=== PATIENT | female | born 1945 | race Caucasian/White ===

== ENCOUNTER 2018-10-01 06:07 | Day surgery (SDC) | payer MEDICARE, BC ==
[~2018-10-01 06:07] MED LIST: Dextrose 5%-0.45% NaCl 1,000 ML IV SCH; Sodium Chloride 0.9% 10 ML Syringe FLUSH PRN
[2018-10-01] MEDS ORDERED: Midazolam 1 MG/ML 2 ML SDV IV ONE ×7 (06:08→07:22)
[2018-10-01] MEDS ORDERED: fentaNYL 100 MCG/2 ML SDV IV ONE ×3 (06:08→07:13)
[2018-10-01] MEDS ORDERED: Midazolam 1 MG/ML 2 ML SDV ONE (06:14)
[2018-10-01] MEDS ORDERED: fentaNYL 100 MCG/2 ML SDV ONE (06:15)
[2018-10-01 10:02] VITALS: BP 121/62; PULSE 79
--- NOTE | 2018-10-01 11:38 | OR ---
DATE: 10/01/2018 PROCEDURE PERFORMED: Total colonoscopy. INSTRUMENT USED: PCF-H190DL Olympus video colonoscope. PREMEDICATIONS: Fentanyl 100 mcg intravenous, Versed 4 mg intravenous. Nasal O2 cannula. The procedure was done under pulse oximetry, BP recording, and nuclear monitoring technician. INDICATION: The patient with recent alteration in her bowel habits. Colonoscopic examination is done for detection of any polypoid lesions and removal, endoscopic hemostasis therapy if needed. Previous colonic polyp and high-risk family history for colon cancer. DESCRIPTION OF PROCEDURE: Initial rectal exam showed large external hemorrhoidal tags. Rigid anoscopy was normal. The colonoscope was passed with ease up to the ileocecal area. Photographs were taken of the normal-appearing cecum, identified by landmarks of appendiceal orifice and double-bulged ileocecal folds. No bleeding was noted from any of the visualized areas at the commencement of the examination. The bowel preparation was found to be adequate, [place] scale 2. No stricture. No vascular ectasia. No large isolated ulcerations seen. No evidence of diffuse inflammatory bowel disease in the form of friability, contact bleeding, or ulcerations. No polyp or tumor mass identified. Probing the proximal sides of folds and flexures using adequate distention and clearing up the stool material, withdrawal of the scope was made, cecum to rectum, time over 6 minutes. No bleeding was noted from any of the visualized areas at the completion of the examination. IMPRESSION: External hemorrhoids. The patient tolerated the procedure well. [facility] /[id number]
--- NOTE | 2018-10-01 13:11 | LETTER ---
10/01/2018 Mindy Saleem NP [facility] [address] [place] [address] RE: LYNMINDY Cobian CHECO : 1945 Dear Ms. Saleem: Ms. Mindy Islas had colonoscopic examination done this morning and she tolerated the procedure well. She is put on Citrucel 1 tablespoonful p.o. daily, response to be noted. I herewith send a copy of the endoscopy note and photographs for your review. Thank you. Sincerely, [facility] /[id number]
== END 2018-10-01 09:50 | disposition home or self-care (01) ==
LOC: DL.ENDO 06:07
PROVIDERS: ATTEND Internal Medicine Gastroenterology
DX: R19.4 Change in bowel habit (principal); K64.4 Residual hemorrhoidal skin tags
CPT/HCPCS: 45378; J2250; J3010; J7042